=== PATIENT | female | born 1955 | race Caucasian/White ===

== ENCOUNTER 2016-11-02 10:39 | Inpatient (IN) | payer BC, OTHER ==
[2016-11-02 10:47] VITALS: BMI 28.8
--- NOTE | 2016-11-02 10:54 | PDOC ---
History of Present Illness - General History Source: Patient Exam Limitations: No Limitations - History of Present Illness Initial Comments: 11/02/16 12:23 The patient is a 61 year old female with significant past medical history of breast CA, cardiomyopathy, and GERD who presents to the emergency department with abdominal pain for 4 days. The patient states that her pain started suddenly on Monday. She states her pain is sharp and constant in nature. The pain is always there, however it comes and goes in severity. She states that there are times when the pain calms down but then the pain also feels like stabbing. She is unable to point to an exact location of her pain, rather she states there is pain all throughout her abdomen. The patient reports an associated decreased appetite and nausea and vomiting that started yesterday. She also noted an intermittent fever, Tmax 101 F for the last few days. The patient saw her PMD today for evaluation of her pain and was sent into the ED for further evaluation. The patient denies ingesting different foods, she denies any new antibiotics use. She denies any diarrhea, her last BM was this morning and normal. She denies any dysuria, hematuria, and frequency. The patient last had a colonoscopy 4 years ago. PMD: Dr. Sultana <Gabi Bustamante - Last Filed: 11/02/16 12:49> <Bucky Miller - Last Filed: 11/02/16 15:52> - General Chief Complaint: Pain, Acute Stated Complaint: (PCP SENT) ABD PAIN Time Seen by Provider: 11/02/16 10:51 Past History <Gabi Bustamante - Last Filed: 11/02/16 12:49> - Past Medical History Cancer: Yes (BREAST) CVA: Yes (Mini stroke 2009) CHF: Yes GI Disorders: Yes (gerd) HTN: Yes - Surgical History Lung Surgery: Yes (Lobectomy Upper L. Lung 2009) - Psycho/Social/Smoking Cessation Hx Suicidal Ideation: No Smoking Status: No Smoking History: Never smoked Number of Cigarettes Smoked Daily: 0 Hx Alcohol Use: No Drug/Substance Use Hx: No Substance Use Type: None Hx Substance Use Treatment: No <Bucky Miller - Last Filed: 11/02/16 15:52> - Past Medical History Allergies/Adverse Reactions: Allergies Allergy/AdvReac Type Severity Reaction Status Date / Time Penicillins Allergy Rash Verified 11/02/16 10:41 hyoscyamine [Hyoscyamine] AdvReac Mild Verified 11/02/16 10:41 morphine AdvReac Mild Vomiting Verified 11/02/16 10:41 Home Medications: Ambulatory Orders Losartan Potassium [Cozaar] 25 mg PO DAILY 12/22/11 Simvastatin [Zocor] 20 mg PO DAILY 12/22/11 Carvedilol [Coreg] 12.5 mg PO DAILY #10 tablet 12/28/11 Exemestane [Aromasin -] 25 mg PO DAILY #0 tablet 12/28/11 Clopidogrel Bisulfate [Plavix -] 75 mg PO DAILY #0 01/22/13 Digoxin 0.125 mg PO DAILY 11/02/16 Review of Systems - Review of Systems Constitutional: Yes: Chills, Fever Respiratory: No: Cough, Shortness of Breath Cardiac (ROS): No: Chest Pain ABD/GI: Yes: See HPI, Nausea, Vomiting. No: Constipated, Diarrhea : No: Dysuria, Frequency, Hematuria All Other Systems: Reviewed and Negative <Bucky Miller - Last Filed: 11/02/16 15:52> *Physical Exam - Vital Signs Last Vital Signs Temp Pulse Resp BP Pulse Ox 97.6 F 82 16 96/58 96 11/02/16 10:42 11/02/16 10:42 11/02/16 10:42 11/02/16 10:42 11/02/16 10:42 - Physical Exam Comments: 11/02/16 12:24 GENERAL: The patient is awake, alert, and fully oriented, in no acute distress. HEAD: Normal with no signs of trauma. EYES: Pupils equal, round and reactive to light, extraocular movements intact, sclera anicteric, conjunctiva clear with no pallor. ENT: Ears normal, nares patent, oropharynx clear without exudates. Moist mucous membranes. NECK: Normal range of motion, supple without lymphadenopathy, JVD, or masses. LUNGS: Breath sounds equal, clear to auscultation bilaterally. No wheeze/ crackles. HEART: Regular rate and rhythm, normal S1 and S2 without murmur or rub. ABDOMEN: +Decreased bowel sounds. Diffuse right side discomfort to palpation. No referred pain. There is rebound localizing to the right mid and right lower abdomen. Soft, nondistended. No guarding. No palpable masses. No hepatosplenomegaly. EXTREMITIES: Normal range of motion, no edema. No clubbing or cyanosis. No cords, erythema, or tenderness. NEUROLOGICAL: Cranial nerves II through XII grossly intact. Normal speech, normal gait. PSYCH: Normal mood, normal affect. SKIN: Warm, Dry, normal turgor, no rashes or lesions noted. <RobbyGabi - Last Filed: 11/02/16 12:49> - Vital Signs Last Vital Signs Temp Pulse Resp BP Pulse Ox 97.6 F 82 16 96/58 96 11/02/16 10:42 11/02/16 10:42 11/02/16 10:42 11/02/16 10:42 11/02/16 10:42 <Bucky Miller - Last Filed: 11/02/16 15:52> Heart Score/ECG Review #1 Compared to previous ECG there are: No significant change (12/22/2011) <RobbyGabi - Last Filed: 11/02/16 12:49> #1 ECG reviewed & interpreted by me at: 12:06 General ECG Interpretation: Sinus Rhythm, Normal Rate (74), Normal Intervals ( [id number], nonspecific intraventricular conduction delay), No acute ischemic changes (ST segment depression in V3 through V5 without reciprocal changes and without any ST elevations) <Bucky Miller - Last Filed: 11/02/16 15:52> ED Treatment Course - LABORATORY CBC & Chemistry Diagram: 11/02/16 11:38 11/02/16 11:38 <RobbyGabi - Last Filed: 11/02/16 12:49> - LABORATORY CBC & Chemistry Diagram: 11/02/16 11:38 11/02/16 11:38 <Bucky Miller - Last Filed: 11/02/16 15:52> Medical Decision Making - Medical Decision Making 11/02/16 12:12 A portion of this note was documented by scribe services under my direction. I have reviewed the details of the note, within reason, and agree with the documentation with the following case summary and management plan written by me. This is a 61-year-old female with history of chemotherapy-induced cardiomyopathy , otherwise currently healthy sent in from Dr. Sultana's office for abdominal pain. Patient has had constant, varying severity generalized abdominal pain for 3 days, associated with some nausea/vomiting/fever, no diarrhea or constipation. Afebrile here Vital signs normal Abdomen is soft and nondistended, tender with peritoneal findings in the right mid/right lower abdomen 61-year-old female with known mild diverticulosis presents with worsening abdominal pain over the last 3 days, associated fevers and chills. Question colitis versus diverticulitis, rule out appendicitis. Less likely in etiology. Labs, urinalysis IV fluids, EKG Declined IV pain medicine, antiemetics CT of the abdomen and pelvis with contrast Reassess, dispo. 11/02/16 15:51 White count of 14, chemistries otherwise within normal limits. CT of the abdomen and pelvis shows a large ascending colon lesion, also notes bilateral ovarian lesions. Discussed with Dr. Sultana, needs admission for pain control and workup. Accepted for inpatient med/surg by Dr. Susanne Hendrix, will obtain GI/onc consults <Bucky Miller - Last Filed: 11/02/16 15:52> *DC/Admit/Observation/Transfer - Attestations Scribe Attestion: 11/02/16 11:23 Documentation prepared by Gabi Bustamante, acting as medical logistics specialist for Bucky Miller MD. <Gabi Bustamante - Last Filed: 11/02/16 12:49> - Discharge Dispostion Admit: Yes <Bucky Miller - Last Filed: 11/02/16 15:52> Diagnosis at time of Disposition: Mass of colon Abdominal pain Qualifiers: Abdominal location: right lower quadrant Qualified Code(s): R10.31 - Right lower quadrant pain - Discharge Dispostion Condition at time of disposition: Fair - Referrals Referrals: Johnson Sultana MD [Primary Care Provider] -
[2016-11-02] MEDS ORDERED: ONDANSETRON 4 MG/2 ML VIAL IVPB ONE (11:29)
[2016-11-02] MEDS ORDERED: morphine CARPU-JECT 4 MG/1 ML DISP.SYRIN IVPUSH ONE (11:29)
[2016-11-02] MEDS ORDERED: SODIUM CHLORIDE 1,000 ML IV STA (11:29)
[2016-11-02 11:50] LABS: BASOPHIL 0.8 % (0-2.0); EOSINOPHIL 0.6 % (0-4.5); MCH 30.6 pg (25.7-33.7); MCHC 33.3 g/dl (32.0-36.0); MEAN CELL VOLUME 91.9 fl (80-96); MEAN PLT VOLUME 7.9 fl (7.5-11.1); NEUTROPHILS 77.6 % (42.8-82.8); PLATELET COUNT 309 K/MM3 (134-434); RDW 14.1 % (11.6-15.6); WHITE BLOOD COUNT 14.1 K/mm3 (4.0-10.0)
[2016-11-02] MEDS ORDERED: morphine CARPU-JECT 4 MG/1 ML DISP.SYRIN ONE (11:52)
[2016-11-02] MEDS ORDERED: ONDANSETRON 4 MG/2 ML VIAL ONE (11:53)
[2016-11-02 12:03] LABS: INR 1.55 (0.82-1.09); PROTHROMBIN TIME (PATIENT) 17.2 SEC (9.98-11.88)
[2016-11-02 12:06] LABS: ALBUMIN 3.5 g/dl (3.4-5.0); BILIRUBIN,TOTAL 0.5 mg/dL (0.2-1.0); CALCIUM 9.3 mg/dL (8.5-10.1); TOT PROT 7.9 g/dl (6.4-8.2)
--- NOTE | 2016-11-02 14:10 | EKG ---
Test Reason : Blood Pressure : / mmHG Vent. Rate : 074 BPM Atrial Rate : 074 BPM P-R Int : 186 ms QRS Dur : 116 ms QT Int : 396 ms P-R-T Axes : 045 -36 -27 degrees QTc Int : 439 ms POOR DATA QUALITY, INTERPRETATION MAY BE ADVERSELY AFFECTED NORMAL SINUS RHYTHM LEFT AXIS DEVIATION INCOMPLETE RIGHT BUNDLE BRANCH BLOCK ST depression, consider subendocardial injury NONSPECIFIC T WAVE ABNORMALITY ABNORMAL ECG WHEN COMPARED WITH ECG OF 22-DEC-2011 16:47, PREMATURE VENTRICULAR COMPLEXES ARE NO LONGER PRESENT T WAVE INVERSION NO LONGER EVIDENT IN LATERAL LEADS Confirmed by LILY PAN, MALIK ([id number]) on 11/02/2016 2:10:15 PM Referred By: Confirmed By:MALIK BAUTISTA MD
[2016-11-02 14:35] LABS: URINE APPEARANCE CLEAR; URINE BILIRUBIN NEGATIVE (NEGATIVE); URINE BLOOD NEGATIVE (NEGATIVE); URINE COLOR STRAW; URINE GLUCOSE (UA) NEGATIVE (NEGATIVE); URINE KETONE NEGATIVE (NEGATIVE); URINE NITRITE NEGATIVE (NEGATIVE); URINE PROTEIN NEGATIVE (NEGATIVE); URINE UROBILINOGEN NEGATIVE E.U./dl (0.2-1.0)
[2016-11-02 14:43] LABS: URINE LEUK ESTERASE TRACE (NEGATIVE)
[2016-11-02 14:50] LABS: URINE WBC 1 /hpf (3-5)
[2016-11-02] MEDS: ATORVASTATIN CA 10 MG TABLET (FP) PO SCH (21:49)
[2016-11-02] MEDS: CARVEDILOL 12.5 MG TABLET (FP) PO SCH (21:49)
--- NOTE | 2016-11-03 06:18 | CONSULT ---
Consult Consult Specialty:: surgery - History of Present Illness Chief Complaint: abdominal pain History of Present Illness: he patient is a 61 year old female with significant past medical history of breast CA, cardiomyopathy, and GERD who presents to the emergency department with abdominal pain for 4 days. The patient states that her pain started suddenly on Monday. She states her pain is sharp and constant in nature. The pain is always there, however it comes and goes in severity. She states that there are times when the pain calms down but then the pain also feels like stabbing. She is unable to point to an exact location of her pain, rather she states there is pain all throughout her abdomen. The patient reports an associated decreased appetite and nausea and vomiting that started yesterday. - History Source History Provided By: Patient Limitations to Obtaining History: No Limitations - Alcohol/Substance Use Hx Alcohol Use: No - Smoking History Smoking history: Never smoked Aproximately how many cigarettes per day: 0 Home Medications - Allergies Allergies/Adverse Reactions: Allergies Allergy/AdvReac Type Severity Reaction Status Date / Time Penicillins Allergy Rash Verified 11/02/16 10:41 hyoscyamine [Hyoscyamine] AdvReac Mild Verified 11/02/16 10:41 morphine AdvReac Mild Vomiting Verified 11/02/16 10:41 - Home Medications Home Medications: Ambulatory Orders Losartan Potassium [Cozaar] 25 mg PO DAILY 12/22/11 Simvastatin [Zocor] 20 mg PO HS 12/22/11 Carvedilol [Coreg] 12.5 mg PO DAILY #10 tablet 12/28/11 Exemestane [Aromasin -] 25 mg PO DAILY #0 tablet 12/28/11 Clopidogrel Bisulfate [Plavix -] 75 mg PO DAILY #0 01/22/13 Digoxin 0.125 mg PO DAILY 11/02/16 Physical Exam Vital Signs: Vital Signs Temperature 98.8 F 11/02/16 23:47 Pulse Rate 78 11/02/16 23:47 Respiratory Rate 18 11/02/16 23:47 Blood Pressure 99/59 11/02/16 23:47 O2 Sat by Pulse Oximetry (%) 94 L 11/02/16 21:00 Imaging - Results Cat Scan: Report Reviewed, Image Reviewed Problem List - Problems (1) Abdominal pain Code(s): R10.9 - UNSPECIFIED ABDOMINAL PAIN Qualifiers: Abdominal location: right lower quadrant Qualified Code(s): R10.31 - Right lower quadrant pain Assessment/Plan 61 yr old with hisotry of diverticulosis breast CA admitted with Abdominal paina nd Ct scan shows potentially constricting mass of the sigmoid colon Recommendations GI consult for sigmoidoscopy 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
[2016-11-03 07:07] LABS: MCH 30.7 pg (25.7-33.7); MCHC 33.8 g/dl (32.0-36.0); MEAN CELL VOLUME 90.8 fl (80-96); MEAN PLT VOLUME 7.7 fl (7.5-11.1); PLATELET COUNT 336 K/MM3 (134-434); RDW 14.3 % (11.6-15.6); WHITE BLOOD COUNT 12.2 K/mm3 (4.0-10.0)
[2016-11-03 07:41] LABS: ALBUMIN 3.4 g/dl (3.4-5.0); ANION GAP 10 (8-16); CALCIUM 8.5 mg/dL (8.5-10.1); CO2 24 mmol/L (21-32); CREATININE 0.8 mg/dL (0.55-1.02); GLUCOSE,RANDOM 120 mg/dL (74-106); SGOT/AST 34 U/L (15-37); SGPT/ALT 56 U/L (12-78)
[2016-11-03 07:55] LABS: ALK PHOS 78 U/L (45-117); BILIRUBIN,TOTAL 0.5 mg/dL (0.2-1.0); DIGOXIN LEVEL 0.6202 ng/ml (0.8-2.0); TOT PROT 7.7 g/dl (6.4-8.2)
[2016-11-03] MEDS ORDERED: PHYTONADIONE 10 MG/1 ML AMP SQ ONE (09:00)
[2016-11-03] MEDS ORDERED: CLOPIDOGREL BISULFATE 75 MG TABLET (FP) PO SCH (10:00)
[2016-11-03] MEDS ORDERED: DIGOXIN 0.125 MG TABLET (FP) PO SCH (10:00)
[2016-11-03] MEDS ORDERED: PT OWN MED DRAWER 7, Y5N ONE (10:15)
[2016-11-03] MEDS: LOSARTAN POTASSIUM 25 MG TABLET PO SCH (10:23)
[2016-11-03] MEDS: CARVEDILOL 12.5 MG TABLET (FP) PO SCH ×2 (10:23→22:34)
[2016-11-03] MEDS: EXEMESTANE 25 MG TABLET PO SCH (10:24)
--- NOTE | 2016-11-03 11:01 | HP ---
Admitting History and Physical - Primary Care Physician PCP: Johnson Sultana - Admission Chief Complaint: abd pain History of Present Illness: 61 yrs old female sent by her PMD for abdominal pain since Monday. Has been having intermittent and sharp abdominal pain with occasional fever. Denies any bowel irregularities. No weight loss. No blood in stools, no dark colored stools.No nausea or vomiting. Her last colonoscopy was about 4 yrs ago- had multiple polyps. 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) - Past Surgical History Past Surgical History: Yes: AICD, Hysterectomy (no BSO), Mastectomy - Smoking History Smoking history: Never smoked Aproximately how many cigarettes per day: 0 - Alcohol/Substance Use Hx Alcohol Use: No - Social History Usual Living Arrangement: Yes: With Spouse ADL: Independent History of Recent Travel: No Home Medications - Allergies Allergies/Adverse Reactions: Allergies Allergy/AdvReac Type Severity Reaction Status Date / Time Penicillins Allergy Rash Verified 11/02/16 10:41 hyoscyamine [Hyoscyamine] AdvReac Mild Verified 11/02/16 10:41 morphine AdvReac Mild Vomiting Verified 11/02/16 10:41 - Home Medications Home Medications: Ambulatory Orders Losartan Potassium [Cozaar] 25 mg PO DAILY 12/22/11 Simvastatin [Zocor] 20 mg PO HS 12/22/11 Carvedilol [Coreg] 12.5 mg PO DAILY #10 tablet 12/28/11 Exemestane [Aromasin -] 25 mg PO DAILY #0 tablet 12/28/11 Clopidogrel Bisulfate [Plavix -] 75 mg PO DAILY #0 01/22/13 Digoxin 0.125 mg PO DAILY 11/02/16 Review of Systems - Review of Systems Constitutional: reports: Fever. denies: Chills, Loss of Appetite, Night Sweats , Unintentional Wgt. Loss, Weakness Cardiovascular: denies: Chest Pain Respiratory: denies: Cough Gastrointestinal: reports: Abdominal Pain. denies: Bloating, Constipation, Diarrhea, Dysphagia, Indigestion, Nausea, Rectal Bleeding, Vomiting Physical Examination Vital Signs: Vital Signs Temperature 98.6 F 11/03/16 10:17 Pulse Rate 72 11/03/16 10:23 Respiratory Rate 20 11/03/16 10:17 Blood Pressure 102/69 11/03/16 10:17 O2 Sat by Pulse Oximetry (%) 94 L 11/02/16 21:00 Constitutional: Yes: No Distress Cardiovascular: Yes: Regular Rate and Rhythm, Other (left AICD) Respiratory: Yes: CTA Bilaterally Gastrointestinal: Yes: Normal Bowel Sounds, Soft, Abdomen, Obese. No: Distention, Tenderness Breast(s): Yes: Other (B/L mastectomy scars) Edema: No Psychiatric: Yes: Alert, Oriented Labs: CBC, BMP 11/03/16 06:20 11/03/16 06:20 Imaging - Results Cat Scan: Report Reviewed EKG: Image Reviewed (NSR) Problem List - Problems (1) Abdominal pain Code(s): R10.9 - UNSPECIFIED ABDOMINAL PAIN Qualifiers: Abdominal location: left lower quadrant Qualified Code(s): R10.32 - Left lower quadrant pain (2) Adnexal mass Code(s): N94.9 - UNSP COND ASSOC W FEMALE GENITAL ORGANS AND MENSTRUAL CYCLE (3) History of breast cancer Code(s): Z85.3 - PERSONAL HISTORY OF MALIGNANT NEOPLASM OF BREAST (4) Mass of colon Code(s): K63.9 - DISEASE OF INTESTINE, UNSPECIFIED (5) Cardiomyopathy Code(s): I42.9 - CARDIOMYOPATHY, UNSPECIFIED (6) CHF (congestive heart failure), NYHA class II Code(s): I50.9 - HEART FAILURE, UNSPECIFIED Qualifiers: Congestive heart failure type: systolic Congestive heart failure chronicity: chronic Qualified Code(s): I50.22 - Chronic systolic ( congestive) heart failure Assessment/Plan PLAN Check tumor markers Surgical eval appreciated 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 Plavix has been on hold since Monday as she was scheduled to go for ingrown toenail surgery tomorrow as an outpt.
--- NOTE | 2016-11-03 20:20 | CON.GI ---
Consult Consult Specialty:: GASTROENTEROLOGY Reason for Consultation:: SIGMOID MASS - History of Present Illness Chief Complaint: ABDOMINAL PAIN, VOMITING History of Present Illness: 61 YEAR OLD FEMALE WITH HISTORY OF BREAST CANCER BILATERALLY S/P B/L MASECTOMY ADMITTED WITH ABDOMINAL PAIN AND VOMITING SINCE MONDAY. PRIOR TO THAT SHE HAD NO CHANGE IN BOWEL HABITS WITH NO RECTAL BLEEDING OR MELENA. SHE HAD A COLONOSCOPY 4 YEARS AGO AND COLON POLYPS WERE REMOVED. SHE HAS NO FAMILY HISTORY OF COLON CANCER. 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[facility]), HTN, Other (CARDIOMMYOPATHY FROM CHEMO, S/P PALCEMTN OF DEFIBRILLATOR, RECENT EF HAS IMPROVED FORM 13 TO 47 %) Pulmonary: No: Asthma, Bronchitis, Cancer, COPD, O2 Dependent, Pneumonia, Previously Intubated, Pulmonary Embolus, Pulmonary Fibrosis, Sleep Apnea, Other Gastrointestinal: Yes: Other (HISTORY OF COLON POLYPS) Hepatobiliary: No: Cirrhosis, Cholelithiasis, Cholecystitis, Choledocholithiasis , Hepatitis A, Hepatitis B, Hepatitis C, Other Renal/: No: Renal Failure, Renal Inusuff, BPH, Cancer, Hematuria, Hemodialysis , Neurogenic Bladder, Renal Calculi, UTI, Other Reproductive: Yes: Fibroids, Other (S/P HYSTERECTOMY) Heme/Onc: Yes: Other (BREAST CANCER) Psych: No: Addictions, Anxiety, Bipolar, Depression, Panic, Psychosis, Schizophrenia, Other Musculoskeletal: No: Bursitis, Chronic low back pain, Hemiparesis, Hemiplegia, Osteoarthritis, Paraplegia, Other Rheumatology: No: Fibromyalgia, Gout, Lupus, Rheumatoid Arthritis, Sarcoidosis, Vasculitis, Other ENT: No: Allergic Rhinitis, Sinusitis, Other - Past Surgical History Past Surgical History: Yes: AICD, Hysterectomy (no BSO), Mastectomy - Alcohol/Substance Use Hx Alcohol Use: No - Smoking History Smoking history: Never smoked Aproximately how many cigarettes per day: 0 - Social History ADL: Independent History of Recent Travel: No Home Medications - Allergies Allergies/Adverse Reactions: Allergies Allergy/AdvReac Type Severity Reaction Status Date / Time Penicillins Allergy Rash Verified 11/02/16 10:41 hyoscyamine [Hyoscyamine] AdvReac Mild Verified 11/02/16 10:41 morphine AdvReac Mild Vomiting Verified 11/02/16 10:41 - Home Medications Home Medications: Ambulatory Orders Losartan Potassium [Cozaar] 25 mg PO DAILY 12/22/11 Simvastatin [Zocor] 20 mg PO HS 12/22/11 Carvedilol [Coreg] 12.5 mg PO DAILY #10 tablet 12/28/11 Exemestane [Aromasin -] 25 mg PO DAILY #0 tablet 12/28/11 Clopidogrel Bisulfate [Plavix -] 75 mg PO DAILY #0 01/22/13 Digoxin 0.125 mg PO DAILY 11/02/16 Review of Systems - Review of Systems Constitutional: reports: Loss of Appetite Eyes: reports: No Symptoms HENT: reports: No Symptoms Neck: reports: No Symptoms Cardiovascular: reports: No Symptoms Respiratory: reports: No Symptoms Gastrointestinal: reports: Abdominal Pain, Nausea, Vomiting Genitourinary: reports: No Symptoms Musculoskeletal: reports: No Symptoms Integumentary: reports: No Symptoms Neurological: reports: No Symptoms Hematology/Lymphatic: reports: No Symptoms Psychiatric: reports: No Symptoms Physical Exam-GI Vital Signs: Vital Signs Temperature 98.2 F 11/03/16 18:15 Pulse Rate 65 11/03/16 18:15 Respiratory Rate 20 11/03/16 18:15 Blood Pressure 106/64 11/03/16 18:15 O2 Sat by Pulse Oximetry (%) 94 L 11/03/16 09:00 Constitutional: Yes: Well Nourished, No Distress Eyes: Yes: WNL HENT: Yes: WNL Neck: Yes: WNL Cardiovascular: Yes: WNL Respiratory: Yes: WNL, Other (MASECTOMY) Gastrointestinal Inspection: Yes: Distention ...Auscultate: Yes: Normoactive Bowel Sounds ...Palpate: Yes: Soft, Other (NO PAIN NO MASS) ...Rectal Exam: Yes: Deferred Genitourinary: Yes: WNL Musculoskeletal: Yes: WNL Extremities: Yes: WNL Neurological: Yes: WNL Labs: CBC, BMP 11/03/16 06:20 11/03/16 06:20 INR, PTT INR 1.55 (0.82-1.09) H 11/02/16 11:38 Laboratory Tests 11/02/16 11/02/16 11/02/16 11:38 11:38 11:38 WBC 14.1 H RBC 3.67 Hgb 11.2 Hct 33.7 MCV 91.9 MCHC 33.3 RDW 14.1 D Plt Count 309 MPV 7.9 D Neutrophils % 77.6 Lymphocytes % 11.8 Monocytes % 9.2 Eosinophils % 0.6 D Basophils % 0.8 D INR 1.55 H Sodium 137 Potassium 4.4 Chloride 102 Carbon Dioxide 28 Anion Gap 7 L BUN Creatinine 1.0 Creat Clearance w eGFR 56.00 Random Glucose 122 H Calcium 9.3 Magnesium Total Bilirubin 0.5 D AST 37 ALT 57 D Alkaline Phosphatase 77 D Total Protein 7.9 Albumin 3.5 Lipase 101 Carcinoembryonic Ag CA 27-29 CA 125 Antigen Digoxin 11/02/16 11/03/16 11/03/16 11:38 06:20 06:20 WBC 12.2 H RBC 3.62 Hgb 11.1 Hct 32.9 MCV 90.8 MCHC 33.8 RDW 14.3 Plt Count 336 MPV 7.7 Neutrophils % Lymphocytes % Monocytes % Eosinophils % Basophils % INR Sodium 138 Potassium 4.0 Chloride 104 Carbon Dioxide 24 Anion Gap 10 BUN 14 Creatinine 0.8 Creat Clearance w eGFR > 60 Random Glucose 120 H Calcium 8.5 Magnesium 1.8 Total Bilirubin 0.5 AST 34 ALT 56 Alkaline Phosphatase 78 Total Protein 7.7 Albumin 3.4 Lipase Carcinoembryonic Ag CA 27-29 CA 125 Antigen Digoxin 0.6202 L 11/03/16 11/03/16 11:30 11:30 WBC RBC Hgb Hct MCV MCHC RDW Plt Count MPV Neutrophils % Lymphocytes % Monocytes % Eosinophils % Basophils % INR Sodium Potassium Chloride Carbon Dioxide Anion Gap BUN Creatinine Creat Clearance w eGFR Random Glucose Calcium Magnesium Total Bilirubin AST ALT Alkaline Phosphatase Total Protein Albumin Lipase Carcinoembryonic Ag Pending CA 27-29 Pending CA 125 Antigen Pending Digoxin Imaging - Results Cat Scan: Image Reviewed Problem List - Problems (1) Mass of colon Assessment/Plan: PATIENT HAS STOPPED PLAVIX SINCE MONDAY. WILL PLACE HER ON AFTERNOON ENDO SCHEDULE FOR SIGMOIDOSCOPY. RISKS AND BENEFITS EXPLAINE TO THE PATIENT. NPO P 9 AM, FLEET ENEMA 2 AND 1 HOUR BEFORE PROCEDURE. CK INR AFTER SUBQ VIT K Code(s): K63.9 - DISEASE OF INTESTINE, UNSPECIFIED (2) Adnexal mass Code(s): N94.9 - UNSP COND ASSOC W FEMALE GENITAL ORGANS AND MENSTRUAL CYCLE (3) Abdominal pain Code(s): R10.9 - UNSPECIFIED ABDOMINAL PAIN Qualifiers: Abdominal location: right lower quadrant Qualified Code(s): R10.31 - Right lower quadrant pain (4) History of breast cancer Code(s): Z85.3 - PERSONAL HISTORY OF MALIGNANT NEOPLASM OF BREAST
[2016-11-03] MEDS: ATORVASTATIN CA 10 MG TABLET (FP) PO SCH (22:34)
[2016-11-04 08:17] LABS: BASOPHIL 0.4 % (0-2.0); EOSINOPHIL 6.1 % (0-4.5); MCH 31.1 pg (25.7-33.7); MCHC 34.3 g/dl (32.0-36.0); MEAN CELL VOLUME 90.6 fl (80-96); MEAN PLT VOLUME 7.8 fl (7.5-11.1); NEUTROPHILS 64.6 % (42.8-82.8); PLATELET COUNT 304 K/MM3 (134-434); RDW 14.3 % (11.6-15.6); WHITE BLOOD COUNT 8.6 K/mm3 (4.0-10.0)
[2016-11-04 08:25] LABS: INR 1.39 (0.82-1.09); PROTHROMBIN TIME (PATIENT) 15.4 SEC (9.98-11.88)
[2016-11-04 08:57] LABS: CALCIUM 8.6 mg/dL (8.5-10.1); CREATININE 0.7 mg/dL (0.55-1.02)
--- NOTE | 2016-11-04 09:08 | PN ---
Progress Note (short form) - Note Progress Note: SUBJECTIVE: Patient seen and examined. Chart reviewed. OBJECTIVE: Vital Signs 11/04/16 11/04/16 06:00 10:15 Temperature 98.7 F Pulse Rate 65 98 H Respiratory 18 Rate Blood Pressure 125/66 Intake & Output 11/03/16 11/04/16 11/04/16 23:59 07:59 15:59 Intake Total 640 0 Balance 640 0 Weight 72.257 kg Intake: IVPB 0 0 Oral 640 TPN/PPN 0 0 Other: Voiding Method Toilet # Unmeasured Voids Void 2 Bowel Movement No Weight Measurement Method Standing Scale Active Medications Atorvastatin Calcium (Lipitor -) 10 mg PO [facility] Last Admin: 11/03/16 22:34 Dose: 10 mg Carvedilol (Coreg -) 12.5 mg PO BID [facility] Last Admin: 11/04/16 10:15 Dose: 12.5 mg Digoxin (Lanoxin -) 0.25 mg PO DAILY [facility] Last Admin: 11/04/16 10:15 Dose: 0.25 mg Exemestane (Aromasin -) 25 mg PO DAILY [facility] Last Admin: 11/04/16 10:15 Dose: 25 mg Losartan Potassium (Cozaar -) 25 mg PO DAILY [facility] Last Admin: 11/04/16 10:15 Dose: 25 mg Sodium Phosphate (Fleet Adult Rectal Enema -) 133 ml [place] ONCE ONE Stop: 11/04/16 12:01 Sodium Phosphate (Fleet Adult Rectal Enema -) 133 ml NH ONCE ONE Stop: 11/04/16 14:01 CBC, BMP 11/04/16 06:00 11/04/16 06:00 Laboratory Last Values WBC 8.6 K/mm3 (4.0-10.0) 11/04/16 06:00 RBC 3.36 M/mm3 (3.60-5.2) L 11/04/16 06:00 Hgb 10.4 GM/dL (10.7-15.3) L 11/04/16 06:00 Hct 30.4 % (32.4-45.2) L 11/04/16 06:00 MCV 90.6 fl (80-96) 11/04/16 06:00 MCHC 34.3 g/dl (32.0-36.0) 11/04/16 06:00 RDW 14.3 % (11.6-15.6) 11/04/16 06:00 Plt Count 304 K/MM3 (134-434) 11/04/16 06:00 MPV 7.8 fl (7.5-11.1) 11/04/16 06:00 Neutrophils % 64.6 % (42.8-82.8) 11/04/16 06:00 Lymphocytes % 20.7 % (8-40) D 11/04/16 06:00 Monocytes % 8.2 % (3.8-10.2) 11/04/16 06:00 Eosinophils % 6.1 % (0-4.5) H D 11/04/16 06:00 Basophils % 0.4 % (0-2.0) 11/04/16 06:00 INR 1.39 (0.82-1.09) H 11/04/16 06:00 Sodium 142 mmol/L (136-145) 11/04/16 06:00 Potassium 4.1 mmol/L (3.5-5.1) 11/04/16 06:00 Chloride 106 mmol/L (98-107) 11/04/16 06:00 Carbon Dioxide 25 mmol/L (21-32) 11/04/16 06:00 Anion Gap 11 (8-16) 11/04/16 06:00 BUN 12 mg/dL (7-18) 11/04/16 06:00 Creatinine 0.7 mg/dL (0.55-1.02) 11/04/16 06:00 Creat Clearance w eGFR > 60 (>60) 11/03/16 06:20 Random Glucose 105 mg/dL (74-106) 11/04/16 06:00 Calcium 8.6 mg/dL (8.5-10.1) 11/04/16 06:00 Magnesium 1.8 mg/dL (1.8-2.4) 11/02/16 11:38 Total Bilirubin 0.5 mg/dL (0.2-1.0) 11/03/16 06:20 AST 34 U/L (15-37) 11/03/16 06:20 ALT 56 U/L (12-78) 11/03/16 06:20 Alkaline Phosphatase 78 U/L (45-117) 11/03/16 06:20 Total Protein 7.7 g/dl (6.4-8.2) 11/03/16 06:20 Albumin 3.4 g/dl (3.4-5.0) 11/03/16 06:20 Lipase 101 U/L (73-393) 11/02/16 11:38 Carcinoembryonic Ag 0.6 ng/mL (0.0-4.7) 11/03/16 11:30 CA 125 Antigen 12.3 U/mL (0.0-38.1) 11/03/16 11:30 Urine Color Straw 11/02/16 11:38 Urine Appearance Clear 11/02/16 11:38 Urine pH 7.0 (5.0-8.0) 11/02/16 11:38 Ur Specific [place] 1.004 (1.001-1.035) 11/02/16 11:38 Urine Protein Negative (NEGATIVE) 11/02/16 11:38 Urine Glucose (UA) Negative (NEGATIVE) 11/02/16 11:38 Urine Ketones Negative (NEGATIVE) 11/02/16 11:38 Urine Blood Negative (NEGATIVE) 11/02/16 11:38 Urine Nitrite Negative (NEGATIVE) 11/02/16 11:38 Urine Bilirubin Negative (NEGATIVE) 11/02/16 11:38 Urine Urobilinogen Negative E.U./dl (0.2-1.0) 11/02/16 11:38 Ur Leukocyte Esterase Trace (NEGATIVE) H 11/02/16 11:38 Urine RBC None /hpf (0-3) 11/02/16 11:38 Urine WBC 1 /hpf (3-5) 11/02/16 11:38 Ur Epithelial Cells Rare /hpf (FEW) 11/02/16 11:38 Digoxin 0.6202 ng/ml (0.8-2.0) L 11/03/16 06:20 Blood Type O POSITIVE 11/02/16 11:38 Antibody Screen Negative 11/02/16 11:38 PHYSICAL EXAMINATION: Constitutional: Yes: No Distress Cardiovascular: Yes: Regular Rate and Rhythm, Other (left AICD) Respiratory: Yes: CTA Bilaterally Gastrointestinal: Yes: Normal Bowel Sounds, Soft, Abdomen, Obese. 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 - Plavix has been on hold since Monday as she was scheduled to go for ingrown toenail surgery tomorrow as an outpt. Documentation prepared by Dia Flanagan, acting as a medical secretary for Ledy Walters MD. <Dia Flanagan - Last Filed: 11/04/16 10:53> - Note Progress Note: pt seen/ examined chart reviewed just came back from ct scan scheduled for sigmoidoscopy later today denies pain. no cp/ sob denies abd pain. Vital Signs Temp 98.7 F 11/04/16 06:00 Pulse 98 H 11/04/16 10:15 Resp 18 11/04/16 06:00 BP 125/66 11/04/16 06:00 Pulse Ox 94 L 11/03/16 21:00 Intake & Output 11/03/16 11/03/16 11/04/16 11:59 23:59 11:59 Intake Total 120 640 0 Balance 120 640 0 Weight 160 lb 2 oz 159 lb 4.8 oz Intake: IVPB 0 0 Oral 120 640 TPN/PPN 0 0 Other: Voiding Method Toilet Toilet # Unmeasured Voids Void 2 Bowel Movement No Weight Measurement Method Standing Scale Standing Scale Active Medications Atorvastatin Calcium (Lipitor -) 10 mg PO HS [facility] Last Admin: 11/03/16 22:34 Dose: 10 mg Carvedilol (Coreg -) 12.5 mg PO BID [facility] Last Admin: 11/04/16 10:15 Dose: 12.5 mg Digoxin (Lanoxin -) 0.25 mg PO DAILY [facility] Last Admin: 11/04/16 10:15 Dose: 0.25 mg Exemestane (Aromasin -) 25 mg PO DAILY [facility] Last Admin: 11/04/16 10:15 Dose: 25 mg Losartan Potassium (Cozaar -) 25 mg PO DAILY [facility] Last Admin: 11/04/16 10:15 Dose: 25 mg Sodium Phosphate (Fleet Adult Rectal Enema -) 133 ml NH ONCE ONE Stop: 11/04/16 12:01 Sodium Phosphate (Fleet Adult Rectal Enema -) 133 ml NH ONCE ONE Stop: 11/04/16 14:01 CBC, BMP 11/04/16 06:00 11/04/16 06:00 ct chest --will review Physical Examination Constitutional: Yes: No Distress Cardiovascular: Yes: Regular Rate and Rhythm, Other (left AICD) Respiratory: Yes: CTA Bilaterally Gastrointestinal: Yes: Normal Bowel Sounds, Soft, non tender . Breast(s): Yes: Other (B/L mastectomy scars) Edema: No Psychiatric: Yes: Alert, Oriented Problem List - Problems (1) Abdominal pain Code(s): R10.9 - UNSPECIFIED ABDOMINAL PAIN Qualifiers: Abdominal location: left lower quadrant Qualified Code(s): R10.32 - Left lower quadrant pain (2) Adnexal mass Code(s): N94.9 - UNSP COND ASSOC W FEMALE GENITAL ORGANS AND MENSTRUAL CYCLE (3) History of breast cancer Code(s): Z85.3 - PERSONAL HISTORY OF MALIGNANT NEOPLASM OF BREAST (4) Mass of colon Code(s): K63.9 - DISEASE OF INTESTINE, UNSPECIFIED (5) Cardiomyopathy Code(s): I42.9 - CARDIOMYOPATHY, UNSPECIFIED (6) CHF (congestive heart failure), NYHA class II Code(s): I50.9 - HEART FAILURE, UNSPECIFIED Qualifiers: Congestive heart failure type: systolic Congestive heart failure chronicity: chronic Qualified Code(s): I50.22 - Chronic systolic ( congestive) heart failure Assessment/Plan clinically stable sigmoidoscopy today will follow <Ledy Walters - Last Filed: 11/04/16 11:03>
[2016-11-04] MEDS: DIGOXIN 0.25 MG TABLET (FP) PO SCH (10:15)
[2016-11-04] MEDS: LOSARTAN POTASSIUM 25 MG TABLET PO SCH (10:15)
[2016-11-04] MEDS: EXEMESTANE 25 MG TABLET PO SCH (10:15)
[2016-11-04] MEDS: CARVEDILOL 12.5 MG TABLET (FP) PO SCH ×2 (10:15→21:27)
--- NOTE | 2016-11-04 10:45 | PN ---
Progress Note (short form) - Note Progress Note: Patient christopher and examined progress noted scheduled for sigmoidosdopy later today will follow Problem List - Problems (1) Abdominal pain Code(s): R10.9 - UNSPECIFIED ABDOMINAL PAIN Qualifiers: Abdominal location: left lower quadrant Qualified Code(s): R10.32 - Left lower quadrant pain
[2016-11-04] MEDS ORDERED: SODIUM PHOSPHATE/NA BIPHOS 133 ML ENEMA PR ONE ×2 (12:00→14:00)
[2016-11-04] MEDS ORDERED: ONDANSETRON 4 MG/2 ML VIAL ONE (16:52)
[2016-11-04] MEDS ORDERED: LEVOFLOXACIN 500 MG IVPB 100 ML IVPB ONE ×2 (16:54→17:23)
[2016-11-04] MEDS ORDERED: METRONIDAZOLE 500 MG PREMIXED 100 ML IVPB ONE ×2 (16:55→17:24)
[2016-11-04] MEDS: ATORVASTATIN CA 10 MG TABLET (FP) PO SCH (21:27)
[2016-11-05] MEDS ORDERED: PT OWN MED DRAWER 7, Y5N ONE (10:32)
[2016-11-05] MEDS: CARVEDILOL 12.5 MG TABLET (FP) PO SCH ×2 (10:43→22:00)
[2016-11-05] MEDS: LOSARTAN POTASSIUM 25 MG TABLET PO SCH (10:43)
[2016-11-05] MEDS: DIGOXIN 0.25 MG TABLET (FP) PO SCH (10:44)
[2016-11-05] MEDS: EXEMESTANE 25 MG TABLET PO SCH (10:45)
--- NOTE | 2016-11-05 10:58 | PN ---
Progress Note (short form) - Note Progress Note: pt comfortable. s/p sigmoidoscopy- finding noted feels well denies pain Vital Signs Temp 98.4 F 11/05/16 06:00 Pulse 68 11/05/16 10:44 Resp 18 11/05/16 06:00 BP 108/67 11/05/16 06:00 Pulse Ox 95 11/04/16 21:00 Intake & Output 11/04/16 11/04/16 11/05/16 11:59 23:59 11:59 Intake Total 0 760 0 Balance 0 760 0 Weight 159 lb 4.8 oz 160 lb 5 oz Intake: IV 350 0 Levaquin 500 mg Premixed 100 Ivpb - 100 ml UD IVPB . STK-MED ONE Rx#:[id number] Flagyl 500Mg Premixed 100 Ivpb - 100 ml UD IVPB . STK-MED ONE Rx#:[id number] sl 0 IVPB 0 0 Oral 410 TPN/PPN 0 Other: Voiding Method Toilet Toilet # Unmeasured Voids Void 2 2 Bowel Movement No Yes # Bowel Movements 2 Weight Measurement Method Standing Scale Standing Scale Active Medications Atorvastatin Calcium (Lipitor -) 10 mg PO HS [facility] Last Admin: 11/04/16 21:27 Dose: 10 mg Carvedilol (Coreg -) 12.5 mg PO BID [facility] Last Admin: 11/05/16 10:43 Dose: 12.5 mg Digoxin (Lanoxin -) 0.25 mg PO DAILY [facility] Last Admin: 11/05/16 10:44 Dose: 0.25 mg Exemestane (Aromasin -) 25 mg PO DAILY [facility] Last Admin: 11/05/16 10:45 Dose: 25 mg Metronidazole (Flagyl 500mg Premixed Ivpb -) 100 mls @ 100 mls/hr IVPB Q8H-IV [facility] Levofloxacin (Levaquin 500 Mg Premixed Ivpb -) 100 mls @ 100 mls/hr IVPB DAILY [facility] Losartan Potassium (Cozaar -) 25 mg PO DAILY [facility] Last Admin: 11/05/16 10:43 Dose: 25 mg CBC, BMP 11/04/16 06:00 11/04/16 06:00 Physical Examination Constitutional: Yes: No Distress Cardiovascular: Yes: Regular Rate and Rhythm, Other (left AICD) Respiratory: Yes: CTA Bilaterally Gastrointestinal: Yes: Normal Bowel Sounds, Soft, non tender . Breast(s): Yes: Other (B/L mastectomy scars) Edema: No Psychiatric: Yes: Alert, Oriented Problem List - Problems (1) Abdominal pain Code(s): R10.9 - UNSPECIFIED ABDOMINAL PAIN Qualifiers: Abdominal location: left lower quadrant Qualified Code(s): R10.32 - Left lower quadrant pain (2) Adnexal mass Code(s): N94.9 - UNSP COND ASSOC W FEMALE GENITAL ORGANS AND MENSTRUAL CYCLE (3) History of breast cancer Code(s): Z85.3 - PERSONAL HISTORY OF MALIGNANT NEOPLASM OF BREAST (4) Mass of colon Code(s): K63.9 - DISEASE OF INTESTINE, UNSPECIFIED (5) Cardiomyopathy Code(s): I42.9 - CARDIOMYOPATHY, UNSPECIFIED (6) CHF (congestive heart failure), NYHA class II Code(s): I50.9 - HEART FAILURE, UNSPECIFIED Qualifiers: Congestive heart failure type: systolic Congestive heart failure chronicity: chronic Qualified Code(s): I50.22 - Chronic systolic ( congestive) heart failure Assessment/Plan stable antibiotics restart plavix when cleared by gi continue other meds pt ambulating will follow
--- NOTE | 2016-11-05 12:38 | PN ---
Progress Note (short form) - Note Progress Note: Post anesthesia assessment.S/P flex sigmoidoscopy under anesthesia with propofol. POD#1 Pat seen and examined. VSS. Ambulating. No post anesthesia complications.Signed off.
[2016-11-05] MEDS: LEVOFLOXACIN 500 MG IVPB 100 ML IVPB SCH (12:48)
[2016-11-05] MEDS: METRONIDAZOLE 500 MG PREMIXED 100 ML IVPB SCH ×2 (12:49→17:56)
[2016-11-05] MEDS: ATORVASTATIN CA 10 MG TABLET (FP) PO SCH (22:00)
[2016-11-06] MEDS: METRONIDAZOLE 500 MG PREMIXED 100 ML IVPB SCH ×3 (03:00→18:50)
[2016-11-06] MEDS: LEVOFLOXACIN 500 MG IVPB 100 ML IVPB SCH (10:51)
[2016-11-06] MEDS: EXEMESTANE 25 MG TABLET PO SCH (10:52)
[2016-11-06] MEDS: DIGOXIN 0.25 MG TABLET (FP) PO SCH (10:52)
[2016-11-06] MEDS: CARVEDILOL 12.5 MG TABLET (FP) PO SCH ×2 (10:52→21:24)
[2016-11-06] MEDS: LOSARTAN POTASSIUM 25 MG TABLET PO SCH (10:52)
--- NOTE | 2016-11-06 12:02 | PN ---
Progress Note (short form) - Note Progress Note: Comfortable no complains feels ok denies pain Vital Signs Temp 98.7 F 11/06/16 06:00 Pulse 64 11/06/16 10:52 Resp 18 11/06/16 09:00 BP 111/69 11/06/16 06:00 Pulse Ox 95 11/06/16 09:00 Intake & Output 11/05/16 11/06/16 11/06/16 22:59 11:59 23:59 Intake Total Balance Weight Intake: IV Levaquin 500 mg Premixed Ivpb - 100 ml UD IVPB . STK-MED ONE Rx#:[id number] Flagyl 500Mg Premixed Ivpb - 100 ml UD IVPB . [facility]K-[facility] ONE Rx#:[id number] Oral Other: Voiding Method # Unmeasured Voids Void Bowel Movement # Bowel Movements Weight Measurement Method Active Medications Atorvastatin Calcium (Lipitor -) 10 mg PO HS [facility] Last Admin: 11/05/16 22:00 Dose: 10 mg Carvedilol (Coreg -) 12.5 mg PO BID [facility] Last Admin: 11/06/16 10:52 Dose: 12.5 mg Digoxin (Lanoxin -) 0.25 mg PO DAILY [facility] Last Admin: 11/06/16 10:52 Dose: 0.25 mg Exemestane (Aromasin -) 25 mg PO DAILY [facility] Last Admin: 11/06/16 10:52 Dose: 25 mg Metronidazole (Flagyl 500mg Premixed Ivpb -) 100 mls @ 100 mls/hr IVPB Q8H-IV [facility] Last Admin: 11/06/16 10:51 Dose: 100 mls/hr Levofloxacin (Levaquin 500 Mg Premixed Ivpb -) 100 mls @ 100 mls/hr IVPB DAILY [facility] Last Admin: 11/06/16 10:51 Dose: 100 mls/hr Losartan Potassium (Cozaar -) 25 mg PO DAILY [facility] Last Admin: 11/06/16 10:52 Dose: 25 mg CBC, BMP 11/04/16 06:00 11/04/16 06:00 Physical Examination Constitutional: Yes: No Distress/ comfortable Cardiovascular: Yes: Regular Rate and Rhythm, Other (left AICD) Respiratory: Yes: CTA Bilaterally Gastrointestinal: Yes: Normal Bowel Sounds, Soft, non tender . Breast(s): Yes: Other (B/L mastectomy scars) Edema: No Psychiatric: Yes: Alert, Oriented Problem List - Problems (1) Abdominal pain Code(s): R10.9 - UNSPECIFIED ABDOMINAL PAIN Qualifiers: Abdominal location: left lower quadrant Qualified Code(s): R10.32 - Left lower quadrant pain (2) Adnexal mass Code(s): N94.9 - UNSP COND ASSOC W FEMALE GENITAL ORGANS AND MENSTRUAL CYCLE (3) History of breast cancer Code(s): Z85.3 - PERSONAL HISTORY OF MALIGNANT NEOPLASM OF BREAST (4) Mass of colon Code(s): K63.9 - DISEASE OF INTESTINE, UNSPECIFIED (5) Cardiomyopathy Code(s): I42.9 - CARDIOMYOPATHY, UNSPECIFIED (6) CHF (congestive heart failure), NYHA class II Code(s): I50.9 - HEART FAILURE, UNSPECIFIED Qualifiers: Congestive heart failure type: systolic Congestive heart failure chronicity: chronic Qualified Code(s): I50.22 - Chronic systolic ( congestive) heart failure Assessment/Plan stable antibiotics restart plavix when cleared by gi continue other meds 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
--- NOTE | 2016-11-06 16:01 | PN ---
Progress Note (short form) - Note Progress Note: feeling better Abdomen soft results of sigmoidoscopy reviewed and discussed with Dr. Chaudhry. will follow Problem List - Problems (1) Abdominal pain Code(s): R10.9 - UNSPECIFIED ABDOMINAL PAIN Qualifiers: Abdominal location: left lower quadrant Qualified Code(s): R10.32 - Left lower quadrant pain
--- NOTE | 2016-11-06 20:23 | CON.OBG ---
Consult Consult Specialty:: constance Reason for Consultation:: pelvic mass , abdominal pain - History of Present Illness Chief Complaint: abdominal pain History of Present Illness: 61 yo f with hx of breast ca, s/p bilateral mastectomy, received chemo, ,hx of hysterectomy for benign fibroids, admitted with abdominal pain, fever, ct scan showed sigmoid mass, possible bilateral ovarian mass , patient feels better now , had colonoscopy, result pending . 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: TIA (2009- has been on Plavix ever since) Cardio/Vascular: Yes: CHF (cardiomyopathy- s/p AICD- 2012- due to chemo- Avastin - [employer]- in [facility]- EF is now 47 %), HTN Pulmonary: No: Asthma, Bronchitis, Cancer, COPD, O2 Dependent, Pneumonia, Previously Intubated, Pulmonary Embolus, Pulmonary Fibrosis, Sleep Apnea, Other Gastrointestinal: Yes: Other (HISTORY OF COLON POLYPS) Hepatobiliary: No: Cirrhosis, Cholelithiasis, Cholecystitis, Choledocholithiasis , Hepatitis A, Hepatitis B, Hepatitis C, Other Renal/: No: Renal Failure, Renal Inusuff, BPH, Cancer, Hematuria, Hemodialysis , Neurogenic Bladder, Renal Calculi, UTI, Other Psych: No: Addictions, Anxiety, Bipolar, Depression, Panic, Psychosis, Schizophrenia, Other Musculoskeletal: No: Bursitis, Chronic low back pain, Hemiparesis, Hemiplegia, Osteoarthritis, Paraplegia, Other Rheumatology: No: Fibromyalgia, Gout, Lupus, Rheumatoid Arthritis, Sarcoidosis, Vasculitis, Other ENT: No: Allergic Rhinitis, Sinusitis, Other - Past Surgical History Past Surgical History: Yes: AICD, Hysterectomy (no BSO), Mastectomy - Alcohol/Substance Use Hx Alcohol Use: No - Smoking History Smoking history: Never smoked Aproximately how many cigarettes per day: 0 - Social History ADL: Independent History of Recent Travel: No Home Medications - Allergies Allergies/Adverse Reactions: Allergies Allergy/AdvReac Type Severity Reaction Status Date / Time Penicillins Allergy Rash Verified 11/02/16 10:41 hyoscyamine [Hyoscyamine] AdvReac Mild Verified 11/02/16 10:41 morphine AdvReac Mild Vomiting Verified 11/02/16 10:41 - Home Medications Home Medications: Ambulatory Orders Losartan Potassium [Cozaar] 25 mg PO DAILY 12/22/11 Simvastatin [Zocor] 20 mg PO HS 12/22/11 Carvedilol [Coreg] 12.5 mg PO DAILY #10 tablet 12/28/11 Exemestane [Aromasin -] 25 mg PO DAILY #0 tablet 12/28/11 Clopidogrel Bisulfate [Plavix -] 75 mg PO DAILY #0 01/22/13 Digoxin 0.125 mg PO DAILY 11/02/16 Physical Exam-ANESTHESIA ATTENDING Vital Signs: Vital Signs Temperature 98.5 F 11/06/16 17:26 Pulse Rate 67 11/06/16 17:26 Respiratory Rate 14 11/06/16 17:26 Blood Pressure 105/74 11/06/16 17:26 O2 Sat by Pulse Oximetry (%) 95 11/06/16 09:00 Labs: CBC, BMP 11/04/16 06:00 11/04/16 06:00
[2016-11-06] MEDS: ATORVASTATIN CA 10 MG TABLET (FP) PO SCH (21:25)
[2016-11-07] MEDS: METRONIDAZOLE 500 MG PREMIXED 100 ML IVPB SCH ×3 (02:11→17:07)
--- NOTE | 2016-11-07 09:48 | PN ---
Progress Note (short form) - Note Progress Note: Subjective Patient seen and examined. Doing well. No complaints. Denies pain. Having bowel movements. Objective Last Vital Signs Temp Pulse Resp BP Pulse Ox 98.5 F 72 18 101/68 94 L 11/07/16 06:00 11/07/16 09:51 11/07/16 06:00 11/07/16 06:00 11/06/16 21:00 CBC, BMP 11/04/16 06:00 11/04/16 06:00 Physical Exam Constitutional: Yes: No Distress/ comfortable Cardiovascular: Yes: Regular Rate and Rhythm, Other (left AICD) Respiratory: Yes: CTA Bilaterally Gastrointestinal: Yes: Normal Bowel Sounds, Soft, non tender . Breast(s): Yes: Other (B/L mastectomy scars) Edema: No Psychiatric: Yes: Alert, Oriented Problem List - Problems (1) Abdominal pain Code(s): R10.9 - UNSPECIFIED ABDOMINAL PAIN Qualifiers: Abdominal location: left lower quadrant Qualified Code(s): R10.32 - Left lower quadrant pain (2) Adnexal mass Code(s): N94.9 - UNSP COND ASSOC W FEMALE GENITAL ORGANS AND MENSTRUAL CYCLE (3) History of breast cancer Code(s): Z85.3 - PERSONAL HISTORY OF MALIGNANT NEOPLASM OF BREAST (4) Mass of colon Code(s): K63.9 - DISEASE OF INTESTINE, UNSPECIFIED (5) Cardiomyopathy Code(s): I42.9 - CARDIOMYOPATHY, UNSPECIFIED (6) CHF (congestive heart failure), NYHA class II Code(s): I50.9 - HEART FAILURE, UNSPECIFIED Qualifiers: Congestive heart failure type: systolic Congestive heart failure chronicity: chronic Qualified Code(s): I50.22 - Chronic systolic ( congestive) heart failure Assessment and Plan stable antibiotics restart plavix continue 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
[2016-11-07] MEDS: LOSARTAN POTASSIUM 25 MG TABLET PO SCH (09:50)
[2016-11-07] MEDS: CARVEDILOL 12.5 MG TABLET (FP) PO SCH ×2 (09:50→21:54)
[2016-11-07] MEDS: EXEMESTANE 25 MG TABLET PO SCH (09:50)
[2016-11-07] MEDS: DIGOXIN 0.25 MG TABLET (FP) PO SCH (09:51)
[2016-11-07] MEDS: LEVOFLOXACIN 500 MG IVPB 100 ML IVPB SCH (11:18)
[2016-11-07] MEDS: CLOPIDOGREL BISULFATE 75 MG TABLET (FP) PO SCH (12:03)
--- NOTE | 2016-11-07 13:58 | PN ---
GI Progress Note Subjective: GASTROENTEROLOGY NO PAIN, VOMITING THIS WEEKEND, PLACED ON FULL DIET BY PMD TODAY BIOPSIES WON'T BE AVAILABLE TILL MONDAY IF DEPARTMENT CLOSED TOMORROW DUE TO SNOW STORM - Objective Vital Signs: Vital Signs Temperature 98.3 F 11/07/16 09:45 Pulse Rate 72 11/07/16 09:51 Respiratory Rate 18 11/07/16 09:45 Blood Pressure 117/79 11/07/16 09:45 O2 Sat by Pulse Oximetry (%) 95 11/07/16 09:00 Constitutional: No Distress Eyes: Yes: Conjunctiva Clear HENT: Yes: Normocephalic Cardiovascular: Yes: Regular Rate and Rhythm Respiratory: Yes: Regular Gastrointestinal Inspection: Yes: WNL ...Auscultate: Yes: Normoactive Bowel Sounds ...Palpate: Yes: Soft Extremities: Yes: WNL Labs: CBC, BMP 11/04/16 06:00 11/04/16 06:00 INR, PTT INR 1.39 (0.82-1.09) H 11/04/16 06:00 Problem List - Problems (1) Mass of colon Assessment/Plan: REPEAT CT SCAN WIOTHOUT CONTRAST(ORAL ONLY) MONDAY FULL LIQUID DIET FOLLOW UP BIOPSY/REPEAT CT SCAN SURGICAL FOLLOW UP ADRIENNE LACEY MD Code(s): K63.9 - DISEASE OF INTESTINE, UNSPECIFIED (2) Adnexal mass Code(s): N94.9 - UNSP COND ASSOC W FEMALE GENITAL ORGANS AND MENSTRUAL CYCLE (3) Abdominal pain Code(s): R10.9 - UNSPECIFIED ABDOMINAL PAIN Qualifiers: Abdominal location: left lower quadrant Qualified Code(s): R10.32 - Left lower quadrant pain (4) History of breast cancer Code(s): Z85.3 - PERSONAL HISTORY OF MALIGNANT NEOPLASM OF BREAST
[2016-11-07] MEDS: ATORVASTATIN CA 10 MG TABLET (FP) PO SCH (21:54)
[2016-11-08] MEDS: METRONIDAZOLE 500 MG PREMIXED 100 ML IVPB SCH ×3 (03:19→18:20)
[2016-11-08] MEDS ORDERED: PT OWN MED DRAWER 7, Y5N ONE ×2 (08:29→11:00)
[2016-11-08] MEDS: CARVEDILOL 12.5 MG TABLET (FP) PO SCH ×2 (10:57→21:07)
[2016-11-08] MEDS: LOSARTAN POTASSIUM 25 MG TABLET PO SCH (10:57)
[2016-11-08] MEDS: CLOPIDOGREL BISULFATE 75 MG TABLET (FP) PO SCH (10:57)
[2016-11-08] MEDS: LEVOFLOXACIN 500 MG IVPB 100 ML IVPB SCH (10:58)
[2016-11-08] MEDS: EXEMESTANE 25 MG TABLET PO SCH (11:00)
[2016-11-08] MEDS: DIGOXIN 0.25 MG TABLET (FP) PO SCH (11:01)
--- NOTE | 2016-11-08 16:08 | PN ---
Progress Note, Physician Chief Complaint: no distress feels well has bm - Current Medication List Current Medications: Active Medications Atorvastatin Calcium (Lipitor -) 10 mg PO HS [facility] Last Admin: 11/07/16 21:54 Dose: 10 mg Carvedilol (Coreg -) 12.5 mg PO BID [facility] Last Admin: 11/08/16 10:57 Dose: 12.5 mg Clopidogrel Bisulfate (Plavix -) 75 mg PO DAILY [facility] Last Admin: 11/08/16 10:57 Dose: 75 mg Digoxin (Lanoxin -) 0.25 mg PO DAILY [facility] Last Admin: 11/08/16 11:01 Dose: 0.25 mg Exemestane (Aromasin -) 25 mg PO DAILY [facility] Last Admin: 11/08/16 11:00 Dose: 25 mg Metronidazole (Flagyl 500mg Premixed Ivpb -) 100 mls @ 100 mls/hr IVPB Q8H-IV [facility] Last Admin: 11/08/16 10:57 Dose: 100 mls/hr Levofloxacin (Levaquin 500 Mg Premixed Ivpb -) 100 mls @ 100 mls/hr IVPB DAILY [facility] Last Admin: 11/08/16 10:58 Dose: 100 mls/hr Losartan Potassium (Cozaar -) 25 mg PO DAILY [facility] Last Admin: 11/08/16 10:57 Dose: 25 mg - Objective Vital Signs: Vital Signs Temperature 98.5 F 11/08/16 14:23 Pulse Rate 77 11/08/16 14:23 Respiratory Rate 17 11/08/16 14:23 Blood Pressure 109/55 11/08/16 14:23 O2 Sat by Pulse Oximetry (%) 98 11/08/16 09:00 Constitutional: Yes: No Distress Cardiovascular: Yes: Regular Rate and Rhythm Respiratory: Yes: CTA Bilaterally Gastrointestinal: Yes: Normal Bowel Sounds, Soft. No: Distention, Tenderness Edema: No Labs: CBC, BMP 11/04/16 06:00 11/04/16 06:00 INR, PTT INR 1.39 (0.82-1.09) H 11/04/16 06:00 Problem List - Problems (1) Abdominal pain Code(s): R10.9 - UNSPECIFIED ABDOMINAL PAIN Qualifiers: Abdominal location: left lower quadrant Qualified Code(s): R10.32 - Left lower quadrant pain (2) Adnexal mass Code(s): N94.9 - UNSP COND ASSOC W FEMALE GENITAL ORGANS AND MENSTRUAL CYCLE (3) History of breast cancer Code(s): Z85.3 - PERSONAL HISTORY OF MALIGNANT NEOPLASM OF BREAST (4) Mass of colon Code(s): K63.9 - DISEASE OF INTESTINE, UNSPECIFIED (5) Cardiomyopathy Code(s): I42.9 - CARDIOMYOPATHY, UNSPECIFIED (6) CHF (congestive heart failure), NYHA class II Code(s): I50.9 - HEART FAILURE, UNSPECIFIED Qualifiers: Congestive heart failure type: systolic Congestive heart failure chronicity: chronic Qualified Code(s): I50.22 - Chronic systolic ( congestive) heart failure Assessment/Plan PLAN IV antibiotics advance diet Afebrile pathology report pending
[2016-11-08] MEDS: ATORVASTATIN CA 10 MG TABLET (FP) PO SCH (21:07)
[2016-11-09] MEDS: METRONIDAZOLE 500 MG PREMIXED 100 ML IVPB SCH ×3 (01:38→17:05)
[2016-11-09] MEDS ORDERED: PT OWN MED DRAWER 7, Y5N ONE (09:06)
[2016-11-09] MEDS: LOSARTAN POTASSIUM 25 MG TABLET PO SCH (09:18)
[2016-11-09] MEDS: LEVOFLOXACIN 500 MG IVPB 100 ML IVPB SCH (09:18)
[2016-11-09] MEDS: CARVEDILOL 12.5 MG TABLET (FP) PO SCH ×2 (09:18→21:21)
[2016-11-09] MEDS: CLOPIDOGREL BISULFATE 75 MG TABLET (FP) PO SCH (09:18)
[2016-11-09] MEDS: EXEMESTANE 25 MG TABLET PO SCH (09:23)
[2016-11-09] MEDS: DIGOXIN 0.25 MG TABLET (FP) PO SCH (09:23)
--- NOTE | 2016-11-09 12:34 | PN ---
Progress Note, Physician Chief Complaint: no complaints no pain wants to go home has bm tolerates full liquids - Current Medication List Current Medications: Active Medications Atorvastatin Calcium (Lipitor -) 10 mg PO HS [facility] Last Admin: 11/08/16 21:07 Dose: 10 mg Carvedilol (Coreg -) 12.5 mg PO BID [facility] Last Admin: 11/09/16 09:18 Dose: 12.5 mg Clopidogrel Bisulfate (Plavix -) 75 mg PO DAILY [facility] Last Admin: 11/09/16 09:18 Dose: 75 mg Digoxin (Lanoxin -) 0.25 mg PO DAILY [facility] Last Admin: 11/09/16 09:23 Dose: 0.25 mg Exemestane (Aromasin -) 25 mg PO DAILY [facility] Last Admin: 11/09/16 09:23 Dose: 25 mg Metronidazole (Flagyl 500mg Premixed Ivpb -) 100 mls @ 100 mls/hr IVPB Q8H-IV [facility] Last Admin: 11/09/16 09:18 Dose: 100 mls/hr Levofloxacin (Levaquin 500 Mg Premixed Ivpb -) 100 mls @ 100 mls/hr IVPB DAILY [facility] Last Admin: 11/09/16 09:18 Dose: 100 mls/hr Losartan Potassium (Cozaar -) 25 mg PO DAILY [facility] Last Admin: 11/09/16 09:18 Dose: 25 mg - Objective Vital Signs: Vital Signs Temperature 98.6 F 11/09/16 06:00 Pulse Rate 101 H 11/09/16 09:23 Respiratory Rate 18 11/09/16 06:00 Blood Pressure 120/62 11/09/16 06:00 O2 Sat by Pulse Oximetry (%) 95 11/08/16 21:00 Constitutional: Yes: No Distress Cardiovascular: Yes: Regular Rate and Rhythm Respiratory: Yes: CTA Bilaterally Gastrointestinal: Yes: Normal Bowel Sounds, Soft, Abdomen, Obese. No: Distention, Tenderness Edema: No Psychiatric: Yes: Alert Labs: CBC, BMP 11/04/16 06:00 11/04/16 06:00 INR, PTT INR 1.39 (0.82-1.09) H 11/04/16 06:00 Problem List - Problems (1) Abdominal pain Code(s): R10.9 - UNSPECIFIED ABDOMINAL PAIN Qualifiers: Abdominal location: left lower quadrant Qualified Code(s): R10.32 - Left lower quadrant pain (2) Adnexal mass Code(s): N94.9 - UNSP COND ASSOC W FEMALE GENITAL ORGANS AND MENSTRUAL CYCLE (3) History of breast cancer Code(s): Z85.3 - PERSONAL HISTORY OF MALIGNANT NEOPLASM OF BREAST (4) Mass of colon Code(s): K63.9 - DISEASE OF INTESTINE, UNSPECIFIED (5) Cardiomyopathy Code(s): I42.9 - CARDIOMYOPATHY, UNSPECIFIED (6) CHF (congestive heart failure), NYHA class II Code(s): I50.9 - HEART FAILURE, UNSPECIFIED Qualifiers: Congestive heart failure type: systolic Congestive heart failure chronicity: chronic Qualified Code(s): I50.22 - Chronic systolic ( congestive) heart failure Assessment/Plan PLAN IV antibiotics advance diet pt ants to go home Afebrile last lab was in 11/04-- no high WBC I spoke with Pathologist-- negative for malignancy, there are areas of inflammation and ischemia left a message for GI to call me back-- dc planning
--- NOTE | 2016-11-09 13:11 | PATH ---
Surgical Pathology Report Patient Name: REGLA VILLA [facility]. Rec. #: [id number] /Age/Gender: 1955 (Age: 61) / F Account: [id number] Location: [address] [place] [address]/[facility] Taken: 11/04/2016 Received: 11/07/2016 Reported: 11/09/2016 Physicians: Allison Gregorio M.D. Specimen(s) Received BX SIGMOID INFLAMMATORY NARROWING Clinical History Abnormal CT scan Sigmoid inflammatory narrowing, diverticulosis, no mass, hemorrhoids Final Diagnosis COLON, SIGMOID, INFLAMMATORY NARROWING, BIOPSY: FOCALLY ULCERATED COLONIC MUCOSA WITH ACTIVE INFLAMMATION WITH, INFAMED GRANULATION TISSUE, FOCAL CRYPTITIS, PROMINENT LYMPHOID AGGREGATES, FOCAL MUCOSAL HEMORRHAGE AND MILD LAMINA PROPRIA FIBROSIS; FOCAL MILD CRYPT REGENERATIVE CHANGES (SEE COMMENT). NO EVIDENCE OF GRANULOMATA, DYSPLASIA/ADENOMA OR CARCINOMA. Comment: The findings, while non-specific, are suggestive of ischemic injury. However, given the endoscopic impression of diverticulosis, an additional component of peridiverticular inflammation cannot be excluded. Clinical and endoscopic correlations and followup are suggested. The case was discussed with Dr. Hendrix on 11/09/16. Electronically Signed Rudolph Lee M.D. Юлия Hamlin M.D. Gross Description Received in formalin, labeled "biopsy sigmoid inflammatory narrowing" are 3 franklin, irregular portions of soft tissue averaging 0.2 cm in greatest dimension. The specimens are submitted in toto in one cassette. /11/07/201611/07/2016
--- NOTE | 2016-11-09 14:33 | PN ---
Progress Note, Physician History of Present Illness: Feeling better Follow up Ct scan reviewed A/P Diverticulitis continue antibiotics - Current Medication List Current Medications: Active Medications Atorvastatin Calcium (Lipitor -) 10 mg PO HS [facility] Last Admin: 11/08/16 21:07 Dose: 10 mg Carvedilol (Coreg -) 12.5 mg PO BID [facility] Last Admin: 11/09/16 09:18 Dose: 12.5 mg Clopidogrel Bisulfate (Plavix -) 75 mg PO DAILY [facility] Last Admin: 11/09/16 09:18 Dose: 75 mg Digoxin (Lanoxin -) 0.25 mg PO DAILY [facility] Last Admin: 11/09/16 09:23 Dose: 0.25 mg Exemestane (Aromasin -) 25 mg PO DAILY [facility] Last Admin: 11/09/16 09:23 Dose: 25 mg Metronidazole (Flagyl 500mg Premixed Ivpb -) 100 mls @ 100 mls/hr IVPB Q8H-IV [facility] Last Admin: 11/09/16 09:18 Dose: 100 mls/hr Levofloxacin (Levaquin 500 Mg Premixed Ivpb -) 100 mls @ 100 mls/hr IVPB DAILY [facility] Last Admin: 11/09/16 09:18 Dose: 100 mls/hr Losartan Potassium (Cozaar -) 25 mg PO DAILY [facility] Last Admin: 11/09/16 09:18 Dose: 25 mg - Objective Vital Signs: Vital Signs Temperature 97.8 F 11/09/16 10:00 Pulse Rate 83 11/09/16 10:00 Respiratory Rate 20 11/09/16 10:00 Blood Pressure 101/70 11/09/16 10:00 O2 Sat by Pulse Oximetry (%) 95 11/08/16 21:00 Labs: CBC, BMP 11/04/16 06:00 11/04/16 06:00 INR, PTT INR 1.39 (0.82-1.09) H 11/04/16 06:00 Problem List - Problems (1) Abdominal pain Code(s): R10.9 - UNSPECIFIED ABDOMINAL PAIN Qualifiers: Abdominal location: left lower quadrant Qualified Code(s): R10.32 - Left lower quadrant pain
--- NOTE | 2016-11-09 17:37 | PN ---
GI Progress Note Subjective: GASTROENTEROLOGY REPEAT CT SCAN SHOWS IMPROVEMENT AND SUGGEST MORE OF A DIVERTICULITIS OR ISCHEMIA BIOPSIES SUGGEST THE SAME ALL TUMOR MAKERS ARE NEGAIVE TOLERATES DIET - Objective Vital Signs: Vital Signs Temperature 98.4 F 11/09/16 14:33 Pulse Rate 97 H 11/09/16 14:33 Respiratory Rate 20 11/09/16 14:33 Blood Pressure 111/72 11/09/16 14:33 O2 Sat by Pulse Oximetry (%) 96 11/09/16 09:00 Constitutional: No Distress Eyes: Yes: Conjunctiva Clear HENT: Yes: Normocephalic Neck: Yes: Supple Cardiovascular: Yes: Regular Rate and Rhythm Respiratory: Yes: Regular Gastrointestinal Inspection: Yes: WNL ...Auscultate: Yes: Normoactive Bowel Sounds ...Palpate: Yes: Soft Extremities: Yes: WNL Labs: CBC, BMP 11/04/16 06:00 11/04/16 06:00 INR, PTT INR 1.39 (0.82-1.09) H 11/04/16 06:00 Problem List - Problems (1) Ischemic colitis Assessment/Plan: CONTINUE ANTIBIOTICS ADVANCE DIET IF ALL OK DISCHARGE IN AM OFFICE FOLLOW UP IN 3 TO 4 WEEKS Code(s): K55.9 - VASCULAR DISORDER OF INTESTINE, UNSPECIFIED (2) Diverticulitis large intestine Code(s): K57.32 - DVTRCLI OF LG INT W/O PERFORATION OR ABSCESS W/O BLEEDING (3) Abdominal pain Code(s): R10.9 - UNSPECIFIED ABDOMINAL PAIN Qualifiers: Abdominal location: left lower quadrant Qualified Code(s): R10.32 - Left lower quadrant pain (4) History of breast cancer Code(s): Z85.3 - PERSONAL HISTORY OF MALIGNANT NEOPLASM OF BREAST
[2016-11-09] MEDS: ATORVASTATIN CA 10 MG TABLET (FP) PO SCH (21:21)
[2016-11-10] MEDS: METRONIDAZOLE 500 MG PREMIXED 100 ML IVPB SCH ×2 (02:04→09:26)
[2016-11-10] MEDS ORDERED: PT OWN MED DRAWER 7, Y5N ONE ×2 (09:16→10:34)
[2016-11-10] MEDS: DIGOXIN 0.25 MG TABLET (FP) PO SCH (09:27)
[2016-11-10] MEDS: LOSARTAN POTASSIUM 25 MG TABLET PO SCH (09:27)
[2016-11-10] MEDS: CARVEDILOL 12.5 MG TABLET (FP) PO SCH (09:27)
[2016-11-10] MEDS: CLOPIDOGREL BISULFATE 75 MG TABLET (FP) PO SCH (09:27)
[2016-11-10 09:28] VITALS: PULSE 70
[2016-11-10] MEDS: LEVOFLOXACIN 500 MG IVPB 100 ML IVPB SCH (09:28)
[2016-11-10] MEDS: EXEMESTANE 25 MG TABLET PO SCH (09:28)
--- NOTE | 2016-11-10 10:25 | DS ---
[id number] Rate 18 11/10/16 06:00 Blood Pressure 108/56 11/10/16 06:00 O2 Sat by Pulse Oximetry (%) 96 11/09/16 09:00 Constitutional: Yes: No Distress, Calm Cardiovascular: Yes: Regular Rate and Rhythm Respiratory: Yes: CTA Bilaterally Gastrointestinal: Yes: Normal Bowel Sounds, Soft. 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 No evidence of malignancy. Showed areas of ischemia as well as diverticulitis and inflammation Repeat CT abdomen showed resolving diverticulitis Patient is able to tolerate food She is having bowel movements She is stable for discharge home Condition: Improved - Instructions Diet, Activity, Other Instructions: Patient was admitted in [facility] from 11/02/16 for abdominal pain ,acute diverticulitis, ischemic colitis. She is better . Patient may return to work on 11/14/16 no restrictions,. She should follow up with Dr Chaudhry as an outpt Referrals: Nate Ramirez MD [Staff Physician] - Johnson Sultana MD [Primary Care Provider] - Gelacio Chaudhry MD [Staff Physician] - Disposition: HOME - Home Medications Comprehensive Discharge Medication List: Ambulatory Orders Losartan Potassium [Cozaar] 25 mg PO DAILY 12/22/11 Simvastatin [Zocor] 20 mg PO HS 12/22/11 Carvedilol [Coreg] 12.5 mg PO DAILY #10 tablet 12/28/11 Exemestane [Aromasin -] 25 mg PO DAILY #0 tablet 12/28/11 Clopidogrel Bisulfate [Plavix -] 75 mg PO DAILY #0 01/22/13 Digoxin 0.125 mg PO DAILY 11/02/16 Pantoprazole Sodium [Protonix] 40 mg PO DAILY #7 tablet. 11/09/16 Levofloxacin [Levaquin] 500 mg PO DAILY #9 tablet 11/10/16 Metronidazole [Flagyl -] 500 mg PO TID #27 tablet 11/10/16
[2016-11-10 10:49] VITALS: BP 118/65; TEMP 98.3
== END 2016-11-10 11:04 | disposition home or self-care (01) | DRG 246 ==
LOC: JER 10:39 → JERBED 15:52 → J5S 17:53
PROVIDERS: ADMIT Internal Medicine; ATTEND Internal Medicine
PROC: 0DBN8ZX Excision of Sigmoid Colon, Via Natural or Artificial Opening Endoscopic, Diagnostic (ICD-10-PCS; principal; 2016-11-04 15:00)
DX: K55.8 Other vascular disorders of intestine (principal); K57.32 Diverticulitis of large intestine without perforation or abscess without bleeding; I42.8 Other cardiomyopathies; I50.22 Chronic systolic (congestive) heart failure; K63.9 Disease of intestine, unspecified; K21.9 Gastro-esophageal reflux disease without esophagitis; I11.0 Hypertensive heart disease with heart failure; N94.9 Unspecified condition associated with female genital organs and menstrual cycle; K64.8 Other hemorrhoids; Z86.73 Personal history of transient ischemic attack (TIA), and cerebral infarction without residual deficits; Z85.3 Personal history of malignant neoplasm of breast; Z95.810 Presence of automatic (implantable) cardiac defibrillator
CPT/HCPCS: 36415; 71250-TC; 74176-TC; 74177-TC; 76830-TC; 80048; 80053; 80162; 81003; 81015; 82378; 83690; 83735; 85025; 85027; 85610; 86300; 86304; 86850; 86900; 86901; 88305-TC; 93005; 93010; 99283-25; Q9967